=== PATIENT | male | born 1955 | race Caucasian/White ===

== ENCOUNTER 2023-03-01 18:13 | Inpatient (IN) | payer OTHER ==
[~2023-03-01] VITALS: Ht 165.1 cm; Wt 65.0 kg
[2023-03-01] MEDS ORDERED: pantoprazole 40mg IV 80 MG in normal saline 100ml IV soln 100 ML IV ONE (19:35)
[2023-03-01 19:54] LABS: BASOPHILS % (AUTO) 0.2 % (0-1); EOSINOPHILS # (AUTO) 0.1 X10'3 (0-0.9); EOSINOPHILS % (AUTO) 0.5 % (0-6); HEMATOCRIT 27.7 % (42.0-52.0); HEMOGLOBIN 9.4 g/dl (14.0-17.9); LYMPHOCYTES # (AUTO) 1.6 X10'3 (1.1-4.8); LYMPHOCYTES % (AUTO) 12.2 % (21-51); MEAN CORPUSCULAR HEMOGLOBIN 35.3 PG (27.0-31.0); MEAN CORPUSCULAR HGB CONC 34.1 g/dL (33.0-36.5); MEAN CORPUSCULAR VOLUME 103.5 FL (78-98); MONOCYTES # (AUTO) 0.9 X10'3 (0-0.9); NEUTROPHILS # (AUTO) 10.7 X10'3 (1.8-7.7); NEUTROPHILS % (AUTO) 80.1 % (42-75); PLATELET COUNT 155 X10'3 (140-440); RED BLOOD COUNT 2.67 X10'6 (4.70-6.10); RED CELL DISTRIBUTION WIDTH 14.2 % (11.5-14.5); WHITE BLOOD COUNT 13.4 X10'3 (4.5-11.0)
[2023-03-01 19:59] LABS: ALANINE AMINOTRANSFERASE 30 U/L (12-78); ALBUMIN 2.5 G/DL (3.4-5.0); ALBUMIN/GLOBULIN RATIO 0.7 (1.1-1.5); ALKALINE PHOSPHATASE 99 IU/L (46-116); ANION GAP 7 (8-16); ASPARTATE AMINO TRANSFERASE 43 U/L (10-37); BILIRUBIN,TOTAL 2.1 MG/DL (0.1-1.0); BLOOD UREA NITROGEN 39 MG/DL (7-18); BUN/CREATININE RATIO 37.1 (10.0-20.0); CALCIUM 8.8 MG/DL (8.5-10.1); CHLORIDE 113 MMOL/L (99-107); CREATININE 1.05 MG/DL (0.60-1.10); ETHANOL < 10 MG/DL (<10); GLUCOSE 127 MG/DL (70-104); LIPASE 119 U/L (73-393); POTASSIUM 4.5 MMOL/L (3.5-5.1); SODIUM 141 MMOL/L (135-145); TOTAL CARBON DIOXIDE 20.8 MMOL/L (24-32); TOTAL PROTEIN 5.9 G/DL (6.4-8.2); eGFR 70 ML/MIN
[2023-03-01] MEDS ORDERED: potassium Cl 40MEQ/1/2NS 520ml 520 ML IV PRN (21:25)
[2023-03-01] MEDS: normal saline 1000ml 1,000 ML IV SCH (22:10)
[2023-03-01 22:41] LABS: BASOPHILS % (AUTO) 0.2 % (0-1); EOSINOPHILS # (AUTO) 0.1 X10'3 (0-0.9); HEMATOCRIT 26.3 % (42.0-52.0); HEMOGLOBIN 8.9 g/dl (14.0-17.9); LYMPHOCYTES % (AUTO) 23.3 % (21-51); MEAN CORPUSCULAR HEMOGLOBIN 34.9 PG (27.0-31.0); MEAN CORPUSCULAR HGB CONC 33.9 g/dL (33.0-36.5); MEAN PLATELET VOLUME 7.7 FL (7.4-10.4); MONOCYTES # (AUTO) 1.1 X10'3 (0-0.9); MONOCYTES % (AUTO) 8.3 % (2-12); NEUTROPHILS # (AUTO) 8.6 X10'3 (1.8-7.7); NEUTROPHILS % (AUTO) 67.2 % (42-75); PLATELET COUNT 157 X10'3 (140-440); RED BLOOD COUNT 2.56 X10'6 (4.70-6.10); RED CELL DISTRIBUTION WIDTH 13.8 % (11.5-14.5); WHITE BLOOD COUNT 12.8 X10'3 (4.5-11.0)
[2023-03-01 23:01] VITALS: BP 119/97; PULSE 88; RESP 13; TEMP 97.7
[2023-03-01 23:17] VITALS: BP 119/97; PULSE 77; RESP 16; TEMP 98.2
[2023-03-01 23:33] VITALS: BP 102/60; PULSE 82; RESP 16; TEMP 98.2
[2023-03-01 23:56] VITALS: BP 117/68; PULSE 82; RESP 16; TEMP 98.6
[2023-03-02] VITALS (10 sets, daily range): BP systolic 96–113; BP diastolic 50–78; PULSE 67–89; RESP 16–18; TEMP 97.5–98.9; O2SAT 95–99
--- NOTE | 2023-03-02 00:43 | NUR ---
REPORT CALLED TO FLOOR NURSE. PT TX TO ROOM 4020A BY TECH
[2023-03-02] MEDS: normal saline 1000ml 1,000 ML IV SCH ×2 (01:25→11:53)
[2023-03-02] MEDS: HYDROcodone/acetaminophen 5mg/325mg tablet PO PRN ×3 (05:24→17:36)
[2023-03-02] MEDS: ondansetron/PF 4mg/2ml inj IV PRN (05:24)
--- NOTE | 2023-03-02 06:15 | NUR ---
Problems reprioritized. Patient report given, questions answered & plan of care reviewed with RHETT HOLDER.
--- NOTE | 2023-03-02 06:47 | NUR ---
Patient in room ORTHO 4020. I have received report from Cass and had the opportunity to ask questions and assume patient care.
[2023-03-02 06:57] LABS: BASOPHILS % (AUTO) 0.4 % (0-1); EOSINOPHILS # (AUTO) 0.3 X10'3 (0-0.9); EOSINOPHILS % (AUTO) 2.9 % (0-6); HEMATOCRIT 25.6 % (42.0-52.0); HEMOGLOBIN 8.9 g/dl (14.0-17.9); LYMPHOCYTES # (AUTO) 2.1 X10'3 (1.1-4.8); LYMPHOCYTES % (AUTO) 23.3 % (21-51); MEAN CORPUSCULAR VOLUME 97.3 FL (78-98); MEAN PLATELET VOLUME 7.8 FL (7.4-10.4); MONOCYTES # (AUTO) 0.8 X10'3 (0-0.9); MONOCYTES % (AUTO) 9.4 % (2-12); NEUTROPHILS # (AUTO) 5.7 X10'3 (1.8-7.7); PLATELET COUNT 113 X10'3 (140-440); RED BLOOD COUNT 2.63 X10'6 (4.70-6.10); RED CELL DISTRIBUTION WIDTH 19.4 % (11.5-14.5); WHITE BLOOD COUNT 8.9 X10'3 (4.5-11.0)
[2023-03-02 07:05] LABS: ALANINE AMINOTRANSFERASE 25 U/L (12-78); ALBUMIN 2.2 G/DL (3.4-5.0); ALKALINE PHOSPHATASE 78 IU/L (46-116); ANION GAP 9 (8-16); ASPARTATE AMINO TRANSFERASE 43 U/L (10-37); BILIRUBIN,TOTAL 4.2 MG/DL (0.1-1.0); BLOOD UREA NITROGEN 42 MG/DL (7-18); BUN/CREATININE RATIO 44.7 (10.0-20.0); CHLORIDE 113 MMOL/L (99-107); CREATININE 0.94 MG/DL (0.60-1.10); GLUCOSE 109 MG/DL (70-104); POTASSIUM 3.9 MMOL/L (3.5-5.1); SODIUM 140 MMOL/L (135-145); TOTAL CARBON DIOXIDE 18.4 MMOL/L (24-32); eCRCL 64 ML/MIN; eGFR 79 ML/MIN
[2023-03-02 07:13] LABS: ALBUMIN/GLOBULIN RATIO 0.7 (1.1-1.5); TOTAL PROTEIN 5.2 G/DL (6.4-8.2)
[2023-03-02] MEDS ORDERED: pantoprazole 40MG/NS 100ML BAG 100 ML IV SCH (08:00)
--- NOTE | 2023-03-02 11:45 | NUR ---
PAGER ID: [phone] MESSAGE: Is Ry Qiu having a scope today? Pt is constantly asking to eat. -Jannette [phone]
--- NOTE | 2023-03-02 11:58 | NUR ---
Student documentation: I have reviewed and agree with all interventions, assessments performed and documented by Pearl Instructor RHETT.
[2023-03-02] MEDS ORDERED: NAPR-996 PO (14:55)
[2023-03-02] MEDS ORDERED: BACL10TA2 PO (14:56)
[2023-03-02] MEDS ORDERED: ACET-1015 PO (14:57)
[2023-03-02 16:12] LABS: OCCULT BLOOD STOOL POSITIVE (Neg)
[2023-03-02] MEDS: pantoprazole 40MG/NS 100ML BAG 100 ML IV SCH ×2 (16:28→19:23)
--- NOTE | 2023-03-02 18:15 | NUR ---
Patient in room ORTHO 4020. I have received report from RHETT Bhatia and had the opportunity to ask questions and assume patient care.
[2023-03-02 21:47] LABS: INR 1.3 INR; PROTHROMBIN TIME 13.3 SECONDS (9.0-12.0)
[2023-03-03] VITALS (15 sets, daily range): BP systolic 89–183; BP diastolic 50–102; PULSE 67–83; RESP 12–20; TEMP 97.9–99.2; O2SAT 96–100
[2023-03-03] MEDS: HYDROcodone/acetaminophen 5mg/325mg tablet PO PRN ×4 (00:03→23:49)
[2023-03-03 06:39] LABS: BASOPHILS % (AUTO) 0.2 % (0-1); EOSINOPHILS # (AUTO) 0.2 X10'3 (0-0.9); EOSINOPHILS % (AUTO) 3.7 % (0-6); HEMATOCRIT 22.8 % (42.0-52.0); HEMOGLOBIN 7.8 g/dl (14.0-17.9); LYMPHOCYTES # (AUTO) 1.5 X10'3 (1.1-4.8); LYMPHOCYTES % (AUTO) 23.3 % (21-51); MEAN CORPUSCULAR HEMOGLOBIN 33.3 PG (27.0-31.0); MEAN PLATELET VOLUME 7.4 FL (7.4-10.4); MONOCYTES # (AUTO) 0.7 X10'3 (0-0.9); MONOCYTES % (AUTO) 11.4 % (2-12); NEUTROPHILS % (AUTO) 61.4 % (42-75); PLATELET COUNT 102 X10'3 (140-440); RED BLOOD COUNT 2.33 X10'6 (4.70-6.10); WHITE BLOOD COUNT 6.5 X10'3 (4.5-11.0)
--- NOTE | 2023-03-03 06:49 | NUR ---
Problems reprioritized. Patient report given, questions answered & plan of care reviewed with RHETT Bhatia.
[2023-03-03 06:57] LABS: ALANINE AMINOTRANSFERASE 26 U/L (12-78); ALBUMIN 2.2 G/DL (3.4-5.0); ALBUMIN/GLOBULIN RATIO 0.8 (1.1-1.5); ALKALINE PHOSPHATASE 78 IU/L (46-116); ANION GAP 8 (8-16); ASPARTATE AMINO TRANSFERASE 86 U/L (10-37); BILIRUBIN,TOTAL 2.9 MG/DL (0.1-1.0); BLOOD UREA NITROGEN 26 MG/DL (7-18); CALCIUM 7.7 MG/DL (8.5-10.1); CHLORIDE 114 MMOL/L (99-107); CREATININE 0.84 MG/DL (0.60-1.10); GLUCOSE 71 MG/DL (70-104); POTASSIUM 3.5 MMOL/L (3.5-5.1); SODIUM 139 MMOL/L (135-145); TOTAL CARBON DIOXIDE 17.4 MMOL/L (24-32); TOTAL PROTEIN 5.1 G/DL (6.4-8.2); eCRCL 71 ML/MIN; eGFR 90 ML/MIN
[2023-03-03] MEDS: normal saline 1000ml 1,000 ML IV SCH ×7 (08:11→23:35)
[2023-03-03] MEDS: pantoprazole 40MG/NS 100ML BAG 100 ML IV SCH ×2 (08:23→19:47)
[2023-03-03] MEDS: ondansetron/PF 4mg/2ml inj IV PRN (08:23)
[2023-03-03 10:57] LABS: BASOPHILS % (AUTO) 0.3 % (0-1); EOSINOPHILS # (AUTO) 0.2 X10'3 (0-0.9); EOSINOPHILS % (AUTO) 2.4 % (0-6); LYMPHOCYTES # (AUTO) 1.4 X10'3 (1.1-4.8); LYMPHOCYTES % (AUTO) 19.4 % (21-51); MEAN CORPUSCULAR HEMOGLOBIN 33.5 PG (27.0-31.0); MEAN CORPUSCULAR HGB CONC 34.2 g/dL (33.0-36.5); MEAN CORPUSCULAR VOLUME 97.9 FL (78-98); MEAN PLATELET VOLUME 7.3 FL (7.4-10.4); MONOCYTES # (AUTO) 0.7 X10'3 (0-0.9); MONOCYTES % (AUTO) 10.2 % (2-12); NEUTROPHILS # (AUTO) 4.9 X10'3 (1.8-7.7); NEUTROPHILS % (AUTO) 67.7 % (42-75); PRE OP HEMATOCRIT 23.3 % (42.0-52.0); PRE OP PLATELET COUNT 108 X10'3 (140-440); PRE OP WHITE BLOOD COUNT 7.2 10'3 (4.8-10.8); RED BLOOD COUNT 2.38 X10'6 (4.70-6.10); RED CELL DISTRIBUTION WIDTH 19.8 % (11.5-14.5)
[2023-03-03 12:55] LABS: ANISOCYTOSIS 2+; PLATELET ESTIMATE DECREASED
[2023-03-03] MEDS ORDERED: fentaNYL/PF 50MCG/1 ML 2ML syringe ONE (13:41)
[2023-03-03] MEDS ORDERED: LIDOcaine Viscous 15ml cup ONE (13:42)
[2023-03-03] MEDS ORDERED: MIDAZolam 1 MG/ML 5ML VIAL ONE (13:42)
--- NOTE | 2023-03-03 18:24 | NUR ---
Problems reprioritized. Patient report given, questions answered & plan of care reviewed with Prudence.
--- NOTE | 2023-03-03 19:02 | NUR ---
Patient in room ORTHO 4020. I have received report from THELMA DELANEY and had the opportunity to ask questions and assume patient care.
[2023-03-04] MEDS: normal saline 1000ml 1,000 ML IV SCH ×4 (02:17→20:02)
[2023-03-04] MEDS: HYDROcodone/acetaminophen 5mg/325mg tablet PO PRN ×4 (05:30→20:01)
[2023-03-04 06:00] VITALS: BP 142/73; PULSE 113; RESP 16; TEMP 97.2; O2SAT 94
--- NOTE | 2023-03-04 06:21 | NUR ---
Problems reprioritized. Patient report given, questions answered & plan of care reviewed with HOLDEN JOHNSON.
[2023-03-04 07:33] LABS: BASOPHILS % (AUTO) 0.3 % (0-1); EOSINOPHILS # (AUTO) 0.1 X10'3 (0-0.9); EOSINOPHILS % (AUTO) 1.4 % (0-6); HEMATOCRIT 23.4 % (42.0-52.0); HEMOGLOBIN 8.1 g/dl (14.0-17.9); LYMPHOCYTES # (AUTO) 1.2 X10'3 (1.1-4.8); LYMPHOCYTES % (AUTO) 15.6 % (21-51); MEAN CORPUSCULAR HGB CONC 34.6 g/dL (33.0-36.5); MEAN CORPUSCULAR VOLUME 98.3 FL (78-98); MEAN PLATELET VOLUME 7.2 FL (7.4-10.4); MONOCYTES # (AUTO) 1.1 X10'3 (0-0.9); MONOCYTES % (AUTO) 14.1 % (2-12); NEUTROPHILS # (AUTO) 5.2 X10'3 (1.8-7.7); NEUTROPHILS % (AUTO) 68.6 % (42-75); PLATELET COUNT 104 X10'3 (140-440); RED BLOOD COUNT 2.39 X10'6 (4.70-6.10); RED CELL DISTRIBUTION WIDTH 18.7 % (11.5-14.5); WHITE BLOOD COUNT 7.5 X10'3 (4.5-11.0)
[2023-03-04] MEDS: pantoprazole 40MG/NS 100ML BAG 100 ML IV SCH ×2 (07:43→19:59)
[2023-03-04 08:00] VITALS: RESP 20; O2SAT 96
[2023-03-04 08:09] LABS: ALANINE AMINOTRANSFERASE 27 U/L (12-78); ALBUMIN 2.4 G/DL (3.4-5.0); ALBUMIN/GLOBULIN RATIO 0.7 (1.1-1.5); ALKALINE PHOSPHATASE 91 IU/L (46-116); ANION GAP 8 (8-16); ASPARTATE AMINO TRANSFERASE 88 U/L (10-37); BILIRUBIN,DIRECT 0.7 MG/DL (0-0.3); BILIRUBIN,TOTAL 3.4 MG/DL (0.1-1.0); BLOOD UREA NITROGEN 13 MG/DL (7-18); BUN/CREATININE RATIO 17.3 (10.0-20.0); CALCIUM 7.5 MG/DL (8.5-10.1); CHLORIDE 110 MMOL/L (99-107); CREATININE 0.75 MG/DL (0.60-1.10); GLUCOSE 101 MG/DL (70-104); POTASSIUM 3.1 MMOL/L (3.5-5.1); SODIUM 136 MMOL/L (135-145); TOTAL CARBON DIOXIDE 18.2 MMOL/L (24-32); TOTAL PROTEIN 5.7 G/DL (6.4-8.2); eCRCL 80 ML/MIN; eGFR > 90 ML/MIN
[2023-03-04 09:11] LABS: % IRON SATURATION 9 % (11-46); IRON 25 UG/DL (53-167); TOTAL IRON BINDING CAPACITY 273 UG/DL (259-388)
[2023-03-04] MEDS ORDERED: propranolol 40mg tablet PO SCH (11:55)
[2023-03-04] MEDS ORDERED: sodium ferric gluc complex inj 125 MG in normal saline 100ml IV soln 100 ML IV ONE (12:00)
--- NOTE | 2023-03-04 15:19 | NUR ---
ADVERTISING INSERTER documentation: I have reviewed and agree with all interventions, assessments performed and documented by [place] LVN.
[2023-03-04 18:00] VITALS: BP 133/71; PULSE 82; RESP 17; TEMP 98.8; O2SAT 95
--- NOTE | 2023-03-04 18:35 | NUR ---
Problems reprioritized. Patient report given, questions answered & plan of care reviewed with RHETT Cade.
--- NOTE | 2023-03-04 18:56 | NUR ---
Patient in room ORTHO 4020. I have received report from HOLDEN JOHNSON and had the opportunity to ask questions and assume patient care.
[2023-03-04 20:00] VITALS: RESP 17; O2SAT 95
[2023-03-04] MEDS: propranolol 10mg tablet PO SCH (20:00)
[2023-03-04 22:00] VITALS: BP 123/72; PULSE 74; RESP 16; TEMP 99.3; O2SAT 98
[2023-03-05] VITALS (8 sets, daily range): BP systolic 116–137; BP diastolic 59–77; PULSE 72–116; RESP 17–18; TEMP 98–98.8; O2SAT 93–97
[2023-03-05] MEDS: HYDROcodone/acetaminophen 5mg/325mg tablet PO PRN ×2 (00:34→05:50)
[2023-03-05] MEDS: normal saline 1000ml 1,000 ML IV SCH ×2 (05:25→17:48)
[2023-03-05 06:28] LABS: BASOPHILS % (AUTO) 0.4 % (0-1); EOSINOPHILS # (AUTO) 0.3 X10'3 (0-0.9); EOSINOPHILS % (AUTO) 2.8 % (0-6); HEMATOCRIT 24.7 % (42.0-52.0); HEMOGLOBIN 8.5 g/dl (14.0-17.9); LYMPHOCYTES # (AUTO) 1.8 X10'3 (1.1-4.8); LYMPHOCYTES % (AUTO) 18.2 % (21-51); MEAN CORPUSCULAR HEMOGLOBIN 34.3 PG (27.0-31.0); MEAN CORPUSCULAR HGB CONC 34.5 g/dL (33.0-36.5); MEAN CORPUSCULAR VOLUME 99.3 FL (78-98); MEAN PLATELET VOLUME 7.6 FL (7.4-10.4); MONOCYTES # (AUTO) 1.4 X10'3 (0-0.9); MONOCYTES % (AUTO) 14.8 % (2-12); NEUTROPHILS # (AUTO) 6.2 X10'3 (1.8-7.7); NEUTROPHILS % (AUTO) 63.8 % (42-75); PLATELET COUNT 119 X10'3 (140-440); RED BLOOD COUNT 2.49 X10'6 (4.70-6.10); RED CELL DISTRIBUTION WIDTH 18.8 % (11.5-14.5); WHITE BLOOD COUNT 9.7 X10'3 (4.5-11.0)
--- NOTE | 2023-03-05 06:39 | NUR ---
Patient in room ORTHO 4020. I have received report from RHETT Cade and had the opportunity to ask questions and assume patient care.
[2023-03-05 06:48] LABS: ALANINE AMINOTRANSFERASE 27 U/L (12-78); ALBUMIN 2.4 G/DL (3.4-5.0); ALBUMIN/GLOBULIN RATIO 0.7 (1.1-1.5); ALKALINE PHOSPHATASE 95 IU/L (46-116); ANION GAP 8 (8-16); ASPARTATE AMINO TRANSFERASE 68 U/L (10-37); BILIRUBIN,TOTAL 3.4 MG/DL (0.1-1.0); BLOOD UREA NITROGEN 8 MG/DL (7-18); BUN/CREATININE RATIO 10.4 (10.0-20.0); CALCIUM 7.7 MG/DL (8.5-10.1); CHLORIDE 107 MMOL/L (99-107); CREATININE 0.77 MG/DL (0.60-1.10); GLUCOSE 93 MG/DL (70-104); POTASSIUM 3.3 MMOL/L (3.5-5.1); SODIUM 133 MMOL/L (135-145); TOTAL CARBON DIOXIDE 18.3 MMOL/L (24-32); TOTAL PROTEIN 5.8 G/DL (6.4-8.2); eCRCL 78 ML/MIN; eGFR > 90 ML/MIN
[2023-03-05] MEDS: propranolol 10mg tablet PO SCH ×2 (07:27→19:20)
[2023-03-05] MEDS: folic acid 1mg tablet PO SCH (07:27)
[2023-03-05] MEDS: cyanocobalamin 500mcg tablet PO SCH (07:27)
[2023-03-05] MEDS: spironolactone 25 MG tablet PO SCH (07:28)
[2023-03-05] MEDS: pantoprazole 40MG/NS 100ML BAG 100 ML IV SCH (07:51)
[2023-03-05] MEDS ORDERED: magnesium 2GM in 50ml NS 50 ML IV PRN (10:55)
[2023-03-05] MEDS ORDERED: potassium Cl 40MEQ/1/2NS 520ml 520 ML IV PRN (10:55)
[2023-03-05] MEDS ORDERED: magnesium 4gm in 100ml NS 100 ML IV PRN (10:55)
[2023-03-05] MEDS ORDERED: potassium Cl 20 mEq SR tablet PO PRN (10:55)
[2023-03-05] MEDS ORDERED: magnesium Cl slow-release 64mg tablet PO PRN (10:55)
[2023-03-05] MEDS ORDERED: iohexol 300mg/ml 100ml inj. ONE (11:24)
[2023-03-05] MEDS: potassium Cl 20 mEq SR tablet PO PRN ×3 (11:30→21:26)
[2023-03-05] MEDS: HYDROcodone/acetaminophen 10/325mg tab PO PRN ×3 (11:31→23:35)
[2023-03-05 12:23] LABS: MAGNESIUM 1.5 MG/DL (1.5-2.4)
--- NOTE | 2023-03-05 14:44 | NUR ---
SCIENTIFIC SYSTEMS ANALYST documentation: I have reviewed and agree with all interventions, assessments performed and documented by P[place] LVN.
[2023-03-05 16:55] LABS: HBSAG SCREEN Negative (Negative); HEPATITIS C VIRUS ANTIBODY Reactive (Non Reactive)
--- NOTE | 2023-03-05 18:35 | NUR ---
Problems reprioritized. Patient report given, questions answered & plan of care reviewed with RHETT Cade.
--- NOTE | 2023-03-05 18:59 | NUR ---
Patient in room ORTHO 4020. I have received report from HOLDEN JOHNSON and had the opportunity to ask questions and assume patient care.
[2023-03-05] MEDS: K and/or MAG REPLACEMENT MC SCH (20:00)
[2023-03-05] MEDS ORDERED: heparin 10,000 units/1 ML INJ IV ONE (21:05)
[2023-03-05] MEDS ORDERED: heparin 25,000 UNIT/250ml bag 250 ML IV PRN (21:05)
[2023-03-05] MEDS ORDERED: heparin 10,000 units/1 ML INJ IV PRN (21:05)
[2023-03-05] MEDS: morphine 2 MG/ML inj. syringe IV PRN (21:25)
[2023-03-06] MEDS: HYDROcodone/acetaminophen 10/325mg tab PO PRN ×4 (03:42→21:46)
[2023-03-06 06:00] VITALS: BP 112/55; PULSE 64; RESP 17; TEMP 98.5; O2SAT 94
--- NOTE | 2023-03-06 06:35 | NUR ---
Problems reprioritized. Patient report given, questions answered & plan of care reviewed with SOILA DELANEY.
[2023-03-06 06:41] LABS: BASOPHILS # (AUTO) 0.1 X10'3 (0-0.2); BASOPHILS % (AUTO) 0.6 % (0-1); EOSINOPHILS # (AUTO) 0.4 X10'3 (0-0.9); EOSINOPHILS % (AUTO) 3.8 % (0-6); HEMATOCRIT 23.3 % (42.0-52.0); HEMOGLOBIN 8.1 g/dl (14.0-17.9); LYMPHOCYTES # (AUTO) 2.3 X10'3 (1.1-4.8); LYMPHOCYTES % (AUTO) 24.6 % (21-51); MEAN CORPUSCULAR HEMOGLOBIN 34.3 PG (27.0-31.0); MEAN CORPUSCULAR HGB CONC 34.9 g/dL (33.0-36.5); MEAN CORPUSCULAR VOLUME 98.3 FL (78-98); MEAN PLATELET VOLUME 7.2 FL (7.4-10.4); MONOCYTES # (AUTO) 1.3 X10'3 (0-0.9); MONOCYTES % (AUTO) 13.6 % (2-12); NEUTROPHILS # (AUTO) 5.4 X10'3 (1.8-7.7); NEUTROPHILS % (AUTO) 57.4 % (42-75); PLATELET COUNT 147 X10'3 (140-440); RED BLOOD COUNT 2.37 X10'6 (4.70-6.10); RED CELL DISTRIBUTION WIDTH 18.5 % (11.5-14.5); WHITE BLOOD COUNT 9.4 X10'3 (4.5-11.0)
--- NOTE | 2023-03-06 06:45 | NUR ---
Patient in room ORTHO 4020. I have received report from Alyssia DELANEY and had the opportunity to ask questions and assume patient care.
[2023-03-06 06:46] LABS: ALANINE AMINOTRANSFERASE 23 U/L (12-78); ALBUMIN 2.2 G/DL (3.4-5.0); ALBUMIN/GLOBULIN RATIO 0.6 (1.1-1.5); ALKALINE PHOSPHATASE 93 IU/L (46-116); ANION GAP 8 (8-16); ASPARTATE AMINO TRANSFERASE 53 U/L (10-37); BILIRUBIN,TOTAL 2.3 MG/DL (0.1-1.0); BLOOD UREA NITROGEN 7 MG/DL (7-18); CALCIUM 7.6 MG/DL (8.5-10.1); CHLORIDE 106 MMOL/L (99-107); CREATININE 0.78 MG/DL (0.60-1.10); GLUCOSE 113 MG/DL (70-104); MAGNESIUM 1.5 MG/DL (1.5-2.4); POTASSIUM 3.6 MMOL/L (3.5-5.1); SODIUM 133 MMOL/L (135-145); TOTAL CARBON DIOXIDE 18.9 MMOL/L (24-32); TOTAL PROTEIN 5.7 G/DL (6.4-8.2); eCRCL 77 ML/MIN; eGFR > 90 ML/MIN
--- NOTE | 2023-03-06 07:00 | NUR ---
Stopped patient heparin gtt for now due to elevated PTT of 126 per protocol instructions will notify Addendum: 03/06/23 at 0727 by Ana Kee RN Ordered new PTT for 0900 per Protocol
[2023-03-06] MEDS: spironolactone 25 MG tablet PO SCH (07:07)
[2023-03-06] MEDS: morphine 2 MG/ML inj. syringe IV PRN ×2 (07:09→19:04)
[2023-03-06] MEDS: propranolol 10mg tablet PO SCH ×2 (07:09→20:07)
[2023-03-06] MEDS: pantoprazole 40mg Tablet.DR PO SCH (07:09)
[2023-03-06] MEDS: cyanocobalamin 500mcg tablet PO SCH (07:09)
[2023-03-06] MEDS: folic acid 1mg tablet PO SCH (07:09)
--- NOTE | 2023-03-06 07:23 | NUR ---
PAGER ID: [phone] MESSAGE: Ana David [phone] Re: 4020A [facility] Critical PTT 126 Please call
[2023-03-06 07:28] VITALS: RESP 16
[2023-03-06] MEDS: K and/or MAG REPLACEMENT MC SCH ×2 (08:00→20:00)
[2023-03-06] MEDS ORDERED: magnesium hydroxide 30ml (MOM) UD suspension PO ONE (09:15)
[2023-03-06 10:00] VITALS: BP 120/83; PULSE 67; RESP 20; TEMP 97.8; O2SAT 90
[2023-03-06] MEDS ORDERED: magnesium hydroxide 30ml (MOM) UD suspension PO PRN (10:40)
--- NOTE | 2023-03-06 11:05 | NUR ---
Initial: Pt admit DX GIB, esophageal varices, liver cirrhosis from hepatitis C, hepatic mass, and possible hepatocellular carcinoma per EMR. Initially NPO advanced to full liquids diet 03/03 WS PO ~80% first 7 meals but not meeting estimated needs given NPO period/restrictive diet. RD notified MD recommends Ensure High Protein TIDWM to assist meeting needs. LBM 03/05 per EMR. Will monitor for further nutrition intervention needs. Rec: 1. advance to regular diet as medically indicated 2. Ensure High Protein TIDWM; pending physician verification in EMR 3. routine folic acid and B12 per MD 4. routine bowel care 5. scaled wt this admit; subsequent weekly wt Addendum: 03/06/23 at [address] Amended: Links added.
[2023-03-06 18:40] VITALS: BP 123/77; PULSE 65; RESP 17; TEMP 98.3; O2SAT 92
[2023-03-07 06:39] LABS: MAGNESIUM 1.6 MG/DL (1.5-2.4); POTASSIUM 3.7 MMOL/L (3.5-5.1)
[2023-03-07 06:42] VITALS: BP 125/73; PULSE 77; RESP 16; TEMP 98.9; O2SAT 96
--- NOTE | 2023-03-07 06:43 | NUR ---
Patient in room ORTHO 4020. I have received report from Edward DELANEY and had the opportunity to ask questions and assume patient care.
--- NOTE | 2023-03-07 06:43 | NUR ---
Problems reprioritized. Patient report given, questions answered & plan of care reviewed with Ana. Addendum: 03/07/23 at 0643 by Gilles Hernandez RN Amended: Links added.
[2023-03-07] MEDS: K and/or MAG REPLACEMENT MC SCH (08:00)
[2023-03-07 08:15] VITALS: RESP 18
[2023-03-07] MEDS: cyanocobalamin 500mcg tablet PO SCH (08:19)
[2023-03-07] MEDS: pantoprazole 40mg Tablet.DR PO SCH (08:19)
[2023-03-07] MEDS: propranolol 10mg tablet PO SCH (08:19)
[2023-03-07] MEDS: folic acid 1mg tablet PO SCH (08:19)
[2023-03-07] MEDS: HYDROcodone/acetaminophen 10/325mg tab PO PRN ×2 (08:20→14:47)
[2023-03-07 10:00] VITALS: BP 130/78; PULSE 71; RESP 20; TEMP 98.5; O2SAT 91
[2023-03-07] MEDS ORDERED: HYDR-3965 PO (10:49)
[2023-03-07] MEDS ORDERED: FERR324T4 PO (10:49)
[2023-03-07] MEDS ORDERED: FOLI1TAB27 PO (10:49)
[2023-03-07] MEDS ORDERED: PANT40TA54 PO (10:49)
[2023-03-07] MEDS ORDERED: CYAN500T71 PO (10:49)
[2023-03-07] MEDS ORDERED: STORE MEDs IN PHARMACY MC (10:49)
[2023-03-07 11:04] VITALS: BP_SYST 130; PULSE 71
[2023-03-07] MEDS: spironolactone 25 MG tablet PO SCH (11:04)
[2023-03-07 14:47] VITALS: RESP 16
--- NOTE | 2023-03-07 16:15 | NUR ---
Patient discharge instructions reviewed with patient and patient verbalized understanding. Patients IV dc'd cannula intact. Patients states he has all his belongings. Patient ambulated with nephew and PCT to patients [employer] vehicle. patient verbalized understanding that he is not to drive while taking pain medication. Patient also understands he needs to call Dr Dc for follow up appt and referral to oncologist. Patient understands medications will be at [facility]
[2023-03-08 19:58] LABS: ANTINUCLEAR ANTIBODIES Positive (Negative)
== END 2023-03-07 16:15 | disposition home or self-care (01) | DRG 432 ==
LOC: ER 18:14 → ED HOLD 21:28 → ORTHO 4S 03-02 00:45
PROVIDERS: ADMIT Internal Medicine; ATTEND Internal Medicine
PROC: 30233N1 Transfusion of Nonautologous Red Blood Cells into Peripheral Vein, Percutaneous Approach (ICD-10-PCS; principal; 2023-03-01)
PROC: 0DJ08ZZ Inspection of Upper Intestinal Tract, Via Natural or Artificial Opening Endoscopic (ICD-10-PCS; 2023-03-03)
DX: K74.69 Other cirrhosis of liver (principal); I81 Portal vein thrombosis; I85.11 Secondary esophageal varices with bleeding; E44.1 Mild protein-calorie malnutrition; G93.49 Other encephalopathy; B19.20 Unspecified viral hepatitis C without hepatic coma; D64.9 Anemia, unspecified; Z66 Do not resuscitate; E61.1 Iron deficiency; Z90.49 Acquired absence of other specified parts of digestive tract; Z86.718 Personal history of other venous thrombosis and embolism; Z91.81 History of falling; Z68.23 Body mass index [BMI] 23.0-23.9, adult
CPT/HCPCS: 36415; 36430; 43244; 71045; 74170; 76700; 80053; 80320; 82103; 82248; 82272; 82390; 83540; 83550; 83690; 83735; 84132; 85008; 85025; 85610; 85730; 86038; 86803; 86885; 86900; 86901; 86920; 87081; 87340; 87522; 93005; 96374; 97116; 97161; 97530; 99152; 99285; A4620; A6258; C9113; G0378; J1644; J2250; J2270; J2405; J2916; J3010; J3480; J3490; J7030; J7040; P9016; Q9967